=== PATIENT | female | born 1950 | race Caucasian/White ===

== ENCOUNTER → 2017-11-13 | Outpatient (CLI) | payer MEDICARE, OTHER ==
[~2017-11-13] MED LIST: ASP325T PO; ASP81TEC PO; ATOR20TA66 PO; CLPD75T PO; DCS100C PO; LORA0.5T34 PO; LSNP20T PO; MTF500T PO; SMT80CT PO
--- NOTE | 2017-11-16 11:26 | Diagnostic Imaging Report ---
INDICATION: Routine screening. COMPARISON: 01/25/2010. TECHNIQUE: 2D and 3D bilateral screening mammography was performed with CAD. FINDINGS: Scattered fibroglandular densities are identified bilaterally. There are benign calcifications in both breasts. No spiculated mass or malignant appearing microcalcification is seen. The axillae are unremarkable. IMPRESSION: No mammographic features suspicious for malignancy are identified. ACR BI-RADS Category 2: Benign findings. Result letter will be mailed to the patient. Note: At least 10% of breast cancer is not imaged by mammography. Dictated by: Dictated on workstation # [id number]
== END ==
LOC: RAD 09:22
PROVIDERS: ATTEND Internal Medicine
DX: Z12.31 Encounter for screening mammogram for malignant neoplasm of breast (principal)
CPT/HCPCS: 77067